=== PATIENT | male | born 1980 | race Caucasian/White ===

== ENCOUNTER 2023-02-12 19:01 | Emergency (ER) | payer OTHER ==
[~2023-02-12] VITALS: Wt 86.2 kg
[2023-02-12] MEDS ORDERED: CEPHALEXIN500 M1 PO (22:33)
== END 2023-02-12 22:44 | disposition home or self-care (01) ==
LOC: ED 19:01
DX: S50.361A Insect bite (nonvenomous) of right elbow, initial encounter (principal); W57.XXXA Bitten or stung by nonvenomous insect and other nonvenomous arthropods, initial encounter; Y93.89 Activity, other specified; Y92.89 Other specified places as the place of occurrence of the external cause; Y99.8 Other external cause status

== ENCOUNTER 2024-06-16 00:40 | Inpatient (IN) | payer OTHER ==
[~2024-06-16] VITALS: Ht 187.9 cm; Wt 89.0 kg
[2024-06-16] VITALS (9 sets, daily range): BP systolic 111–155; BP diastolic 61–89
[~2024-06-16 00:40] MED LIST: CEPHALEXIN500 M1 PO
[2024-06-16] MEDS ORDERED: MORPHINE Sulfate 2 MG/ML SYR IV ONE (01:10)
[2024-06-16] MEDS ORDERED: IOHEXOL 300 MG/ML 100 ML VIAL IV ONE (01:15)
[2024-06-16 01:18] LABS: BASO # 0.1 10*3/uL (0.0-0.1); BASO % 0.6 % (0.0-1.0); EOS # 0.8 10*3/uL (0.0-0.4); EOS % 5.6 % (1.0-4.0); HEMATOCRIT 47.1 % (42.0-52.0); MEAN CELL VOLUME 90.8 fl (80.0-94.0); MEAN CORPUSCULAR HGB 29.9 pg (27.0-31.0); MEAN CORPUSCULAR HGB CONC 32.9 g/dl (33.0-37.0); MEAN PLATELET VOLUME 9.4 fl (9.6-12.3); MONO # 1.3 10*3/uL (0.1-1.0); MONO % 9.1 % (3.0-9.0); NEUT # 8.7 10*3/uL (2.3-7.9); NEUT % 62.1 % (47.0-73.0); PLATELET COUNT AUTOMATED 265 10*3/uL (130-400); RED BLOOD COUNT 5.19 10*6/uL (4.50-5.90)
[2024-06-16 01:38] LABS: ALKALINE PHOSPHATASE 70 U/L (46-116); BUN 7 mg/dl (9-23); CHLORIDE 106 mmol/L (98-107); LIPASE 59 U/L (12-53); POTASSIUM 4.3 mmol/L (3.4-5.1); SGPT/ALT 19 U/L (5-49); TOTAL PROTEIN 7.3 gm/dL (6.0-8.0)
[2024-06-16] MEDS ORDERED: Piperacillin Sodium/Tazobact 50 ML IV ONE (02:40)
[2024-06-16] MEDS ORDERED: MORPHINE Sulfate 2 MG/ML SYR IV PRN (03:15)
[2024-06-16] MEDS ORDERED: Ondansetron Hydrochloride 4 MG/2 ML VIAL IV PRN (03:15)
[2024-06-16] MEDS ORDERED: SODIUM CHLORIDE 0.9% 500 ML IV ONE (03:25)
[2024-06-16] MEDS ORDERED: Piperacillin Sodium/Tazobact 50 ML IV SCH (10:00)
[2024-06-16] MEDS ORDERED: Lactated Ringer's Solution 1,000 ML IV ONE (13:23)
[2024-06-16] MEDS ORDERED: BUPIVACAINE 0.5% 10 ML VIAL ONE ×2 (13:25→13:27)
[2024-06-16] MEDS ORDERED: PERCOCET 5-3251 EACH PO (13:39)
[2024-06-16] MEDS ORDERED: COLACE100 MG PO (13:39)
[2024-06-16] MEDS ORDERED: ROSUVASTATIN CA10 MG PO (14:02)
[2024-06-16] MEDS ORDERED: HYDROmorphONE Hydrochloride 0.5 MG/0.5 ML SYRINGE IV PRN (14:45)
[2024-06-16] MEDS ORDERED: HYDROmorphONE Hydrochloride 0.5 MG/0.5 ML SYRINGE ONE ×2 (15:10→15:21)
[2024-06-16] MEDS ORDERED: PROPOFOL 200 MG/20 ML VIAL IV ONE (16:09)
[2024-06-16] MEDS ORDERED: SEVOFLURANE 250 ML BOT INH ONE (16:09)
[2024-06-16] MEDS ORDERED: Dexamethasone Sodium Phospha 4 MG/ML VIAL IV ONE (16:09)
[2024-06-16] MEDS ORDERED: Ketamine Hydrochloride 500 MG/10 ML VIAL IV ONE (16:09)
[2024-06-16] MEDS ORDERED: SUGAMMADEX SODIUM 200 MG/2 ML VIAL IV ONE (16:09)
[2024-06-16] MEDS ORDERED: fentaNYL CITRATE 100 MCG/2 ML VIAL IV ONE (16:09)
[2024-06-16] MEDS ORDERED: ROCURONIUM BROMIDE 50 MG/5 ML SYRINGE IV ONE ×2 (16:09→16:12)
[2024-06-16] MEDS ORDERED: Lidocaine Hydrochloride 2% 5 ML SDV IV ONE (16:09)
[2024-06-16] MEDS ORDERED: Ondansetron Hydrochloride 4 MG/2 ML VIAL IV ONE (16:09)
[2024-06-16] MEDS ORDERED: Ketorolac Tromethamine 30 MG/ML VIAL IV ONE (16:09)
[2024-06-16] MEDS ORDERED: DEXMEDETOMIDINE HCL 200 MCG/2 ML VIAL IV ONE (16:09)
[2024-06-16] MEDS ORDERED: MAGNESIUM SULFATE 1 GM/2 ML VIAL IV ONE ×2 (16:09→16:12)
== END 2024-06-16 16:36 | disposition home or self-care (01) | DRG 419 ==
LOC: ED 00:40 → 4E 02:53 → EDHOLD 02:53 → 4E 07:55
PROVIDERS: Internal Medicine; ADMIT Internal Medicine; ATTEND Internal Medicine
PROC: 0FT44ZZ Resection of Gallbladder, Percutaneous Endoscopic Approach (ICD-10-PCS; principal; 2024-06-16)
DX: K80.00 Calculus of gallbladder with acute cholecystitis without obstruction (principal); D72.829 Elevated white blood cell count, unspecified; R73.9 Hyperglycemia, unspecified; F17.210 Nicotine dependence, cigarettes, uncomplicated; Z90.49 Acquired absence of other specified parts of digestive tract; Z83.3 Family history of diabetes mellitus; Z80.52 Family history of malignant neoplasm of bladder; Z71.6 Tobacco abuse counseling

== ENCOUNTER 2024-09-29 09:16 | Emergency (ER) | payer OTHER ==
[~2024-09-29 09:16] MED LIST changes: +COLACE100 MG PO; +PERCOCET 5-3251 EACH PO; +ROSUVASTATIN CA10 MG PO
[2024-09-30] MEDS ORDERED: NAPROXEN250 MG PO (03:18)
[2024-09-30] MEDS ORDERED: METHOCARBAMOL750 M1 PO (03:18)
== END 2024-09-29 09:59 | disposition left against medical advice (07) ==
LOC: ED 09:16
DX: M54.2 Cervicalgia (principal); M25.519 Pain in unspecified shoulder; Z53.21 Procedure and treatment not carried out due to patient leaving prior to being seen by health care provider

== ENCOUNTER 2024-09-30 02:36 | Emergency (ER) | payer OTHER ==
[~2024-09-30] VITALS: Ht 182.8 cm; Wt 88.5 kg
[2024-09-30] MEDS ORDERED: Ketorolac Tromethamine 60 MG/2 ML VIAL IM ONE (02:50)
[2024-09-30] MEDS ORDERED: METHOCARBAMOL 750 MG TAB PO ONE (02:50)
[2024-09-30] MEDS ORDERED: METHOCARBAMOL750 M1 PO (03:18)
[2024-09-30] MEDS ORDERED: NAPROXEN250 MG PO (03:18)
== END 2024-09-30 03:23 | disposition home or self-care (01) ==
LOC: ED 02:36
DX: S29.012A Strain of muscle and tendon of back wall of thorax, initial encounter (principal); M25.511 Pain in right shoulder; E78.00 Pure hypercholesterolemia, unspecified; F17.200 Nicotine dependence, unspecified, uncomplicated; Z90.49 Acquired absence of other specified parts of digestive tract; Z98.890 Other specified postprocedural states; X58.XXXA Exposure to other specified factors, initial encounter; Y93.89 Activity, other specified; Y92.009 Unspecified place in unspecified non-institutional (private) residence as the place of occurrence of the external cause; Y99.8 Other external cause status

== ENCOUNTER 2025-04-12 20:42 | Emergency (ER) | payer OTHER ==
[~2025-04-12] VITALS: Ht 182.8 cm; Wt 88.5 kg
[~2025-04-12 20:42] MED LIST changes: +METHOCARBAMOL750 M1 PO; +NAPROXEN250 MG PO
[2025-04-12] MEDS ORDERED: LISSAMINE GREEN 1.5 MG STRIP OP ONE (21:05)
[2025-04-12] MEDS ORDERED: Dexamethasone/Tobramycin OPHTHALMIC 2.5 ML BOTTLE OPH ONE (21:05)
[2025-04-12] MEDS ORDERED: TOBRAMYCIN5 ML OP (22:14)
[2025-04-12] MEDS ORDERED: TOBRAMYCIN 2.5 ML BOT OPH ONE (22:15)
== END 2025-04-12 22:19 | disposition home or self-care (01) ==
LOC: ED 20:42
DX: S05.02XA Injury of conjunctiva and corneal abrasion without foreign body, left eye, initial encounter (principal); R05.9 Cough, unspecified; E78.5 Hyperlipidemia, unspecified; F17.200 Nicotine dependence, unspecified, uncomplicated; Z79.899 Other long term (current) drug therapy; Z90.49 Acquired absence of other specified parts of digestive tract; X58.XXXA Exposure to other specified factors, initial encounter; Y93.89 Activity, other specified; Y92.89 Other specified places as the place of occurrence of the external cause; Y99.8 Other external cause status